=== PATIENT | female | born 1975 | race Caucasian/White ===

== ENCOUNTER 2022-11-26 13:26 | Emergency (ER) | payer OTHER ==
[~2022-11-26] VITALS: Ht 162.6 cm; Wt 75.7 kg
--- NOTE | 2022-11-26 14:01 | ED General ---
General Chief Complaint: Neuro-Stroke Like Symptoms Stated Complaint: STROKE-LIKE SYMPTOMS Source of Information: Patient Exam Limitations: No Limitations History of Present Illness Date Seen by Provider: Nov 26, 2022 Time Seen by Provider: 13:29 Initial Comments 47-year-old female with past medical history of chronic migraines that are atypical and chronic back issues coming in due to a near syncopal episode this morning, fell down in the bathroom around 5 AM, hit her head with headache and some back discomfort. Has been walking since then. Went to an and [place] and had a CT of her head which was reportedly normal, EKG, and labs reportedly. She stated she signed out AMA because she did not feel like she was being treated well. She believes she could have some foot drop on her right lower extremity. She has had surgery on her back in the past. Denies any bowel or bladder issues. Allergies and Home Medications Allergies Coded Allergies: diphenhydramine (Verified Allergy, Unknown, 11/26/22) fentanyl (Verified Allergy, Unknown, 11/26/22) prochlorperazine (Verified Allergy, Unknown, 11/26/22) tramadol (Verified Allergy, Unknown, 11/26/22) Patient Home Medication List Home Medication List Reviewed: Yes Lidocaine (Lidocaine 5% Patch) 5 % Adh..patch, 1 EACH TP Q12H PRN for Neuropathic pain Prescribed by: JOSE HAINES on 11/26/22 153 Promethazine HCl (Promethazine Tablet) 25 Mg Tablet, 25 MG PO Q8H PRN for NAUSEA/VOMITING Prescribed by: JOSE HAINES on 11/26/22 153 Review of Systems Review of Systems Constitutional: see HPI EENTM: no symptoms reported Respiratory: no symptoms reported Cardiovascular: see HPI Gastrointestinal: no symptoms reported Genitourinary: no symptoms reported Musculoskeletal: see HPI Skin: no symptoms reported Psychiatric/Neurological: See HPI Hematologic/Lymphatic: No Symptoms Reported Past Jymeqzm-Hpdfrv-[id number] Hx Past Medical History Surgeries: Yes Hysterectomy, Orthopedic Physical Exam Vital Signs Vital Signs - First Documented 11/26/22 13:40 Temp 37.3 Pulse 95 Resp 13 B/P (MAP) 126/87 (100) Pulse Ox 96 Capillary Refill : Height, Weight, BMI Height: '" Weight: lbs. oz. kg; BMI Method: General Appearance: No Apparent Distress, WD/WN Eyes: Bilateral Eye Normal Inspection HEENT: PERRL/EOMI, Normal ENT Inspection, Pharynx Normal Neck: Full Range of Motion, Normal Inspection, Non Tender, Supple Respiratory: Chest Non Tender, Lungs Clear, Normal Breath Sounds, No Accessory Muscle Use, No Respiratory Distress Cardiovascular: Regular Rate, Rhythm, No Edema, Normal Peripheral Pulses Gastrointestinal: Normal Bowel Sounds, Non Tender, Soft; No Distended, No Guarding Back: Normal Inspection, No CVA Tenderness, Other (Tenderness mostly around L1 paraspinal) Extremity: Normal Capillary Refill, Normal Inspection, Normal Range of Motion, Non Tender, No Calf Tenderness, No Pedal Edema Neurologic/Psychiatric: Alert, Oriented x3, No Motor/Sensory Deficits, Normal Mood/Affect, cell tester II-XII Norm as Tested, Other (Patient's states that she has foot drop, would not pull her toes towards her head when asked, I personally visualized the patient pulling her toes towards her head during conversation. I also visualized the patient ambulating and transferring on video before getting into the ER outside.) Skin: Normal Color, Warm/Dry Progress/Results/Core Measures Suspected Sepsis SIRS Temperature: Pulse: Respiratory Rate: Laboratory Tests 11/26/22 13:50: White Blood Count 7.8 Blood Pressure / Mean: Laboratory Tests 11/26/22 13:50: Creatinine 0.73, INR Comment 0.9, Platelet Count 278, Total Bilirubin 0.5 Results/Orders Lab Results Laboratory Tests Test 11/26/22 13:50 Range/Units White Blood Count 7.8 4.3-11.0 10^3/uL Red Blood Count 4.88 3.80-5.11 10^6/uL Hemoglobin 15.9 11.5-16.0 g/dL Hematocrit 45 35-52 % Mean Corpuscular Volume 92 80-99 fL Mean Corpuscular Hemoglobin 33 25-34 pg Mean Corpuscular Hemoglobin Concent 36 32-36 g/dL Red Cell Distribution Width 12.2 10.0-14.5 % Platelet Count 278 130-400 10^3/uL Mean Platelet Volume 10.7 9.0-12.2 fL Immature Granulocyte % (Auto) 0 % Neutrophils (%) (Auto) 47 42-75 % Lymphocytes (%) (Auto) 44 12-44 % Monocytes (%) (Auto) 8 0-12 % Eosinophils (%) (Auto) 1 0-10 % Basophils (%) (Auto) 1 0-10 % Neutrophils # (Auto) 3.7 1.8-7.8 10^3/uL Lymphocytes # (Auto) 3.4 1.0-4.0 10^3/uL Monocytes # (Auto) 0.6 0.0-1.0 10^3/uL Eosinophils # (Auto) 0.1 0.0-0.3 10^3/uL Basophils # (Auto) 0.1 0.0-0.1 10^3/uL Immature Granulocyte # (Auto) 0.0 0.0-0.1 10^3/uL Prothrombin Time 12.6 12.2-14.7 SEC INR Comment 0.9 0.8-1.4 Activated Partial Thromboplast Time 31 24-35 SEC Sodium Level 140 135-145 MMOL/L Potassium Level 3.8 3.6-5.0 MMOL/L Chloride Level 107 98-107 MMOL/L Carbon Dioxide Level 20 L 21-32 MMOL/L Anion Gap 13 5-14 MMOL/L Blood Urea Nitrogen 8 7-18 MG/DL Creatinine 0.73 0.60-1.30 MG/DL Estimat Glomerular Filtration Rate 102 BUN/Creatinine Ratio 11 Glucose Level 125 H 70-105 MG/DL Calcium Level 9.1 8.5-10.1 MG/DL Corrected Calcium 8.8 8.5-10.1 MG/DL Magnesium Level 2.2 1.6-2.4 MG/DL Total Bilirubin 0.5 0.1-1.0 MG/DL Aspartate Amino Transf (AST/SGOT) 21 5-34 U/L Alanine Aminotransferase (ALT/SGPT) 17 0-55 U/L Alkaline Phosphatase 80 40-136 U/L Troponin I < 0.028 <0.028 NG/ML Total Protein 7.3 6.4-8.2 GM/DL Albumin 4.4 3.2-4.5 GM/DL My Orders Orders - JOSE HAINES MD Ct Head/Cervical Spine Wo (11/26/22 13:56) Ct Thoracic/Lumbar Spine Wo (11/26/22 13:56) Ed Iv/Invasive Line Start (11/26/22 13:56) Cbc With Automated Diff (11/26/22 13:56) Comprehensive Metabolic Panel (11/26/22 13:56) Magnesium (11/26/22 13:56) Protime With Inr (11/26/22 13:56) Partial Thromboplastin Time (11/26/22 13:56) Troponin I Lalit (11/26/22 13:56) Ed Iv/Invasive Line Start (11/26/22 13:56) Ekg Tracing (11/26/22 13:56) Morphine Injection (Morphine Injection (11/26/22 14:01) Lorazepam Injection (Ativan Injection) (11/26/22 14:55) Vital Signs/I&O 11/26/22 11/26/22 13:40 15:33 Temp 37.3 Pulse 95 88 Resp 13 16 B/P (MAP) 126/87 (100) 116/78 Pulse Ox 96 97 Capillary Refill : Progress Note : Progress Note 47-year-old female with above history coming in after a ground-level fall. ABCs were intact and vitals were stable on presentation. Physical exam with no significant abnormalities other than some lower spinal tenderness. She has been ambulatory for more than 8 hours since the accident, low likelihood for significant fracture. CT head and total spine ordered which were negative for acute findings, does have some chronic changes in her spine particularly where she is tender. EKG ordered and interpreted by me showing no acute ischemic changes, QTc of 419, no delta wave, narrow QRS. Labs significant for normal hemoglobin, normal white blood cell count, normal creatinine, unremarkable electrolytes, reassuring glucose, negative troponin. She is [place] syncope rule negative and she remembers the events as well, unsure if she really had a syncopal episode or if it was near syncope. I believe she stable for discharge with outpatient follow-up. She was sent home with strict return precautions. Of note, the patient was noting some subjective foot drop. When not being prompted, she is able to pull her toes all the way up when watching her closely. She also was able to ambulate in the ER without difficulty. Of note, the patient requested multiple times repeat doses of morphine. She says nothing else will work. I offered her numerous options, she refused all of them for different reasons. I legitimately offered her more than 10 options for medications for pain and headache and she refused all of them. I did state that I do not recommend morphine for what she is stating is a typical headache that she tends to get. She continues to not want any other medications. I am concerned that the patient has been to multiple facilities in the past couple of days, and per her is leaving all of these facilities angry and upset with her care. I can tell she is upset somewhat with her care here today as she is not receiving the morphine that she would like, that I feel at this time after a CT of her head and total spine without acute findings would be inappropriate. I discussed I would send in a lidocaine patch to her pharmacy for her back (she refused all other options offered to her) as well as I would refill her phenergan. Patient also did not want to ambulate in the ER. I personally visualized her move her lower extremities normal when in conversation and not actively examining her. I also visualized her stand, transfer and squat in into her car without assistance on video. Diagnostic Imaging Diagonstic Imaging: CT (head, c/t/l spine) Comments [facility], [place] NAME: DELANO RONQUILLO [facility] REC#: [id number] PT STATUS: REG ER : 1975 PHYSICIAN: JOSE HAINES MD ADMIT DATE: 11/26/22/ER Draft Date of Exam:11/26/22 CT HEAD/CERVICAL SPINE WO PROCEDURE: CT head and CT cervical spine without contrast. TECHNIQUE: Multiple contiguous axial images were obtained through the brain and cervical spine without the use of intravenous contrast. Sagittal and coronal reformations through the cervical spine were then performed. Auto Exposure Controls were utilized during the CT exam to meet ALARA standards for radiation dose reduction. INDICATION: Trauma with migraine headache and visual disturbance; previous cervical spine fusion CT HEAD: CT images of the head were obtained. FINDINGS: Ventricles and sulci are within normal limits for size. There is no intracranial hemorrhage identified. There is no abnormal mass effect or shift of midline structures. IMPRESSION: Unremarkable CT of the head. CT CERVICAL SPINE: Multiple contiguous axial CT images of the cervical spine were obtained with sagittal and coronal reformatted images produced. FINDINGS: There is loss of normal cervical lordosis. Vertebral body heights and disc spaces are maintained. Prevertebral soft tissues are unremarkable, and there is no evidence of paraspinous hematoma. Discectomy and anterior fusion is noted at C6-C7 without evidence of complication. IMPRESSION: Loss of normal cervical lordosis which may be due to positioning or muscle spasm. There is, otherwise, no CT evidence of acute cervical spinal abnormality. Dictated on workstation # [id number] Dict: 11/26/22 1445 Trans: 11/26/22 1448 [facility] [id number] Interpreted by: STAN ECKERT MD Electronically signed by: [facility] [place] [place], [place] NAME: DELANO RONQUILLO [facility] REC#: [id number] PT STATUS: REG ER : 1975 PHYSICIAN: JOSE HAINES MD ADMIT DATE: 11/26/22/ER Draft Date of Exam:11/26/22 CT HEAD/CERVICAL SPINE WO PROCEDURE: CT head and CT cervical spine without contrast. TECHNIQUE: Multiple contiguous axial images were obtained through the brain and cervical spine without the use of intravenous contrast. Sagittal and coronal reformations through the cervical spine were then performed. Auto Exposure Controls were utilized during the CT exam to meet ALARA standards for radiation dose reduction. INDICATION: Trauma with migraine headache and visual disturbance; previous cervical spine fusion CT HEAD: CT images of the head were obtained. FINDINGS: Ventricles and sulci are within normal limits for size. There is no intracranial hemorrhage identified. There is no abnormal mass effect or shift of midline structures. IMPRESSION: Unremarkable CT of the head. CT CERVICAL SPINE: Multiple contiguous axial CT images of the cervical spine were obtained with sagittal and coronal reformatted images produced. FINDINGS: There is loss of normal cervical lordosis. Vertebral body heights and disc spaces are maintained. Prevertebral soft tissues are unremarkable, and there is no evidence of paraspinous hematoma. Discectomy and anterior fusion is noted at C6-C7 without evidence of complication. IMPRESSION: Loss of normal cervical lordosis which may be due to positioning or muscle spasm. There is, otherwise, no CT evidence of acute cervical spinal abnormality. Dictated on workstation # [id number] Dict: 11/26/22 1445 Trans: 11/26/22 1448 [facility] [id number] Interpreted by: STAN ECKERT MD Electronically signed by: Departure Impression Primary Impression: Fall Qualified Codes: W19.XXXA - Unspecified fall, initial encounter Additional Impressions: Syncope Qualified Codes: R55 - Syncope and collapse Concussion Qualified Codes: S06.0X0A - Concussion without loss of consciousness, initial encounter Low back pain Qualified Codes: M54.41 - Lumbago with sciatica, right side Disposition: HOME, SELF-CARE Condition: Stable Departure-Patient Inst. Decision time for Depature: 15:15 Referrals: NO,LOCAL PHYSICIAN (PCP/Family) Primary Care Physician Patient Instructions: Fainting, Adult ED, Concussion in adults Add. Discharge Instructions: The CT of your head and total spine did not show anything significant. We do see some degenerative changes in your spine which can cause pain often worsened after a fall. We recommend following up with a spine surgeon, if you do not have 1, you can have your regular doctor make a referral. We recommend taking [id number] Tylenol as needed for pain and [id number] lidocaine patches as well in the area. You do have a concussion, symptoms of this can be headache, dizziness, sometimes difficulty sleeping, sometimes sleeping more often, and other symptoms as well. Typically this takes a couple weeks to improve. It is okay to sleep since your CT head was normal. Scripts Lidocaine (Lidocaine 5% Patch) 5 % Adh..patch 1 EACH TP Q12H PRN for Neuropathic pain MDD 2 for 14 Days, #28 PATCH 2 patches max for 12 hours, then 12 hours patch-free period. Prov: JOSE HAINES MD 11/26/22 Promethazine HCl (Promethazine Tablet) 25 Mg Tablet 25 MG PO Q8H PRN for NAUSEA/VOMITING for 7 Days, #21 TAB 0 Refills Prov: JOSE HAINES MD 11/26/22 Work/School Note: Work Release Form Date Seen in the Emergency Department: Nov 26, 2022 Return to Work: Nov 28, 2022 Restrictions: No Restrictions OJSE HAINES MD Nov 26, 2022 14:01
[2022-11-26 14:02] LABS: BASOPHILS # (AUTO) 0.1 10^3/uL (0.0-0.1); BASOPHILS % (AUTO) 1 % (0-10); EOSINOPHILS # (AUTO) 0.1 10^3/uL (0.0-0.3); EOSINOPHILS % (AUTO) 1 % (0-10); HEMATOCRIT 45 % (35-52); HEMOGLOBIN 15.9 g/dL (11.5-16.0); LYMPHOCYTES # (AUTO) 3.4 10^3/uL (1.0-4.0); LYMPHOCYTES % (AUTO) 44 % (12-44); MEAN CORPUSCULAR HEMOGLOBIN 33 pg (25-34); MEAN CORPUSCULAR HGB CONC 36 g/dL (32-36); MEAN CORPUSCULAR VOLUME 92 fL (80-99); MEAN PLATELET VOLUME 10.7 fL (9.0-12.2); MONOCYTES # (AUTO) 0.6 10^3/uL (0.0-1.0); MONOCYTES % (AUTO) 8 % (0-12); NEUTROPHILS # (AUTO) 3.7 10^3/uL (1.8-7.8); NEUTROPHILS % (AUTO) 47 % (42-75); PLATELET COUNT 278 10^3/uL (130-400); WHITE BLOOD COUNT 7.8 10^3/uL (4.3-11.0)
[2022-11-26 14:11] LABS: ALBUMIN 4.4 GM/DL (3.2-4.5); CHLORIDE 107 MMOL/L (98-107); POTASSIUM 3.8 MMOL/L (3.6-5.0); SODIUM 140 MMOL/L (135-145)
[2022-11-26 14:12] LABS: CALCIUM 9.1 MG/DL (8.5-10.1)
[2022-11-26 14:13] LABS: GLUCOSE 125 MG/DL (70-105); TOTAL PROTEIN 7.3 GM/DL (6.4-8.2)
[2022-11-26 14:14] LABS: CARBON DIOXIDE 20 MMOL/L (21-32)
[2022-11-26] MEDS: morphine INJ 10 MG/ML 1ML (SYR OR VIAL) IVP STA (14:14)
[2022-11-26 14:15] LABS: BILIRUBIN,TOTAL 0.5 MG/DL (0.1-1.0)
[2022-11-26 14:17] LABS: ALKALINE PHOSPHATASE 80 U/L (40-136); CREATININE SERUM 0.73 MG/DL (0.60-1.30); GFR ESTIMATED 102
[2022-11-26 14:18] LABS: BUN/CREATININE RATIO 11
[2022-11-26 14:19] LABS: INR 0.9 (0.8-1.4); PROTHROMBIN TIME PATIENT 12.6 SEC (12.2-14.7)
[2022-11-26 14:20] LABS: ALANINE AMINOTRANSFERASE 17 U/L (0-55); MAGNESIUM 2.2 MG/DL (1.6-2.4)
--- NOTE | 2022-11-26 14:48 | Diagnostic Imaging Report ---
PROCEDURE: CT head and CT cervical spine without contrast. TECHNIQUE: Multiple contiguous axial images were obtained through the brain and cervical spine without the use of intravenous contrast. Sagittal and coronal reformations through the cervical spine were then performed. Auto Exposure Controls were utilized during the CT exam to meet ALARA standards for radiation dose reduction. INDICATION: Trauma with migraine headache and visual disturbance; previous cervical spine fusion CT HEAD: CT images of the head were obtained. FINDINGS: Ventricles and sulci are within normal limits for size. There is no intracranial hemorrhage identified. There is no abnormal mass effect or shift of midline structures. IMPRESSION: Unremarkable CT of the head. CT CERVICAL SPINE: Multiple contiguous axial CT images of the cervical spine were obtained with sagittal and coronal reformatted images produced. FINDINGS: There is loss of normal cervical lordosis. Vertebral body heights and disc spaces are maintained. Prevertebral soft tissues are unremarkable, and there is no evidence of paraspinous hematoma. Discectomy and anterior fusion is noted at C6-C7 without evidence of complication. IMPRESSION: Loss of normal cervical lordosis which may be due to positioning or muscle spasm. There is, otherwise, no CT evidence of acute cervical spinal abnormality. Dictated by: Dictated on workstation # [id number]
--- NOTE | 2022-11-26 15:01 | Diagnostic Imaging Report ---
PROCEDURE: CT thoracic and lumbar spine without contrast. TECHNIQUE: Multiple contiguous axial images were obtained through the thoracic and lumbar spine without the use of intravenous contrast. Sagittal and coronal reformations were then performed. All CT scans use one or more of the following dose optimizing techniques: automated exposure control, MA and/or KvP adjustment based on a patient size and exam type, or iterative reconstruction. INDICATION: Trauma/back pain. FINDINGS: Thoracic and lumbar spinal curvature and alignment are unremarkable. Vertebral body heights are maintained. There is no evidence of acute fracture or malalignment. There is moderate narrowing of the L5-S1 disc space with associated endplate spurring. No definite spondylolysis or spondylolisthesis is appreciated. There is no evidence of paraspinous hematoma. IMPRESSION: Localized L5-S1 degenerative disc disease without CT evidence of acute thoracic or lumbar spinal injury. Dictated by: Dictated on workstation # [id number]
[2022-11-26] MEDS: LORazepam INJ 2 MG/ML (ATIVAN) VIAL IVP STA (15:09)
[2022-11-26] MEDS ORDERED: LIDO700A45 TP (15:32)
[2022-11-26] MEDS ORDERED: PROM25TA14 PO (15:32)
[2022-11-26 15:33] VITALS: BP 116/78
[2022-11-26] MEDS ORDERED: HYDR-700 PO (15:38)
== END 2022-11-26 15:45 | disposition home or self-care (01) ==
LOC: EDUNIT# 13:26 → ER 13:32
DX: S06.0XAA Concussion with loss of consciousness status unknown, initial encounter (principal); R55 Syncope and collapse; M54.50 Low back pain, unspecified; Z86.69 Personal history of other diseases of the nervous system and sense organs; Z28.310 Unvaccinated for COVID-19; W18.30XA Fall on same level, unspecified, initial encounter; W22.8XXA Striking against or struck by other objects, initial encounter; Y92.002 Bathroom of unspecified non-institutional (private) residence as the place of occurrence of the external cause
CPT/HCPCS: 36415; 70450; 72125; 72128; 72131; 80053; 83735; 84484; 85025; 85610; 85730; 93005

== ENCOUNTER 2023-02-07 08:19 | Emergency (ER) | payer OTHER ==
[~2023-02-07] VITALS: Ht 162 cm; Wt 81.0 kg
[~2023-02-07 08:19] MED LIST: HYDR-700 PO; LIDO700A45 TP; PROM25TA14 PO
--- NOTE | 2023-02-07 09:36 | ED Back Pain ---
General Chief Complaint: Back Problems Stated Complaint: BACK PAIN Nursing Triage Note: PT TO ED W/ C/O LOWER BACK PAIN ONSET YESTERDAY AFTER MOVING FURNITURE AT HOME. PT REPORTS HX OF BACK SURGERY 10YRS AGO. DENIES LOSS OF BOWEL OR BLADDER, DENIES BILAT LEG NUMBNESS. DOES REPORT SHE FEELS LIKE HER "LEFT LEG IS DRAGGING". NO OTHER C/O VOICED. Source of Information: Patient (LISA CONTRERAS) History of Present Illness Date Seen by Provider: Feb 07, 2023 Time Seen by Provider: 09:20 Location: Lumbar Spine, Paraspinous Muscles Timing/Duration: 24 Hours Severity: Moderate Pain/Injury Location: Back, Lower Extremity (left leg weakness) Radiation: Buttocks, Lower Legs (left leg) Method of Injury: Other (moved furniture yesterday) Modifying Factors: Improves With Movement (worsens) Associated Symptoms: muscle spasms, weakness; No numbness in legs/feet, No tingling in legs/feet; lower back pain; No loss of bladder control, No loss of bowel control (LISA CONTRERAS) Initial Comments This 47-year-old woman presents to the emergency room with severe lower back pain. She has had chronic lower back pain and prior surgery on the lumbar spine without hardware. She implies a discectomy. She has had some radicular pain into the left leg without true muscle weakness. The severe pain started yesterday after she pushed some furniture. This was a relatively nonstrenuous activity that did not involve any lifting. She heard a popping sound at onset of pain. She has taken ibuprofen, Tylenol, aspirin, and drank alcohol last night without benefit. The pain is stabbing in nature and worse with any movement. She was able to walk into the emergency room today. She has been avoiding drinking fluids because she did not want to get up to urinate. She fell a few months ago but does not believe this current episode is related to injury from that fall. Patient was initially seen by MEG wylie at 0920. Report was received from MEG wylie. I personally interviewed and examined the patient at 1005 as soon as I was available. (JEN CANTU MD) Allergies and Home Medications Allergies Coded Allergies: diphenhydramine (Verified Allergy, Unknown, 11/26/22) fentanyl (Verified Allergy, Unknown, 11/26/22) prochlorperazine (Verified Allergy, Unknown, 11/26/22) tramadol (Verified Allergy, Unknown, 11/26/22) Patient Home Medication List Home Medication List Reviewed: Yes (LISA CONTRERAS) Lidocaine (Lidocaine 5% Patch) 5 % Adh..patch, 1 EACH TP Q12H PRN for Neuropathic pain Prescribed by: JOSE HAINES on 11/26/22 1532 Oxycodone HCl/Acetaminophen (Percocet 5-325 mg Tablet) 1 Each Tablet, 1 TAB PO Q4H PRN for PAIN BREAKTROUGH Prescribed by: JEN TANG on 02/07/23 1227 Promethazine HCl (Promethazine Tablet) 25 Mg Tablet, 25 MG PO Q8H PRN for NAUSEA/VOMITING Prescribed by: JOSE HAINES on 11/26/22 1532 Review of Systems Constitutional: no symptoms reported; No chills, No diaphoresis, No dizziness EENTM: no symptoms reported Respiratory: no symptoms reported; No cough, No dyspnea on exertion, No short of breath, No wheezing Cardiovascular: no symptoms reported; No chest pain, No palpitations, No syncope Gastrointestinal: No abdominal pain, No constipation, No diarrhea, No nausea, No vomiting Genitourinary: no symptoms reported : No Musculoskeletal: back pain, muscle pain, muscle stiffness, muscle weakness (left leg) (LISA CONTRERAS) Past Qgngbja-Cfvkgd-Cpxnnb Hx Patient Social History Tobacco Use?: Yes Tobacco type used: Cigarettes Smoking Status: Current Everyday Smoker Use of E-Cig and/or Vaping dev: No Substance use?: Yes Substance type: Nicotine, Marijuana Alcohol Use?: Yes Pt feels they are or have been: No (LISA CONTRERAS) Past Medical History Surgery/Hospitalization HX: back surgery Surgeries: Yes Hysterectomy, Orthopedic (LISA CONTRERAS) Physical Exam Vital Signs Vital Signs - First Documented 02/07/23 09:15 Temp 36.5 Pulse 115 Resp 20 B/P (MAP) 124/76 (92) Pulse Ox 96 O2 Delivery Room Air (JEN CANTU MD) Vital Signs Capillary Refill : Less Than 3 Seconds (LISA CONTRERAS) Height, Weight, BMI Height: '" Weight: lbs. oz. kg; 30.00 BMI Method: General Appearance: No Apparent Distress, WD/WN Cardiovascular: Regular Rate, Rhythm, No Gallop, No Murmur, Normal Peripheral Pulses Respiratory: Lungs Clear, Normal Breath Sounds, No Accessory Muscle Use, No Respiratory Distress Gastrointestinal: Non Tender, Soft Back: CVA Tenderness (L), CVA Tenderness (R), Vertebral Tenderness, Other (paraspinal tenderness of lumbar spine bilaterally and sciatica area of left side. ) Extremity: Normal Range of Motion, Non Tender, No Calf Tenderness Neurologic/Psychiatric: Alert, Oriented x3, Normal Mood/Affect (LISA CONTRERAS) Progress/Results/Core Measures Results/Orders My Orders Orders - JEN CANTU MD Ketorolac Injection (Ketorolac Injection (02/07/23 10:15) Orphenadrine Inj (Ed Only) (Orphenadrine (02/07/23 10:15) Ed Iv/Invasive Line Start (02/07/23 10:06) Lactated Ringers 1,000 Ml (Lactated Ring (02/07/23 10:30) Ct Lumbar Spine Wo (02/07/23 10:16) Morphine Injection (Morphine Injection (02/07/23 10:45) Morphine Injection (Morphine Injection (02/07/23 11:45) Methylprednisolone Acetate Inj (Methylpr (02/07/23 11:45) (JEN CANTU MD) Medications Given in ED (JEN CANTU MD) Vital Signs/I&O 02/07/23 02/07/23 09:15 12:10 Temp 36.5 Pulse 115 100 Resp 20 20 B/P (MAP) 124/76 (92) 130/72 Pulse Ox 96 95 O2 Delivery Room Air Room Air (JEN CANTU MD) Blood Pressure Mean: 92 Progress Progress Note : Time: 09:39 Progress Note 09:39 - Patient is seen this morning for "terrible back pain." She says that she was moving furniture yesterday and her lower back started hurting. She denies any saddle paresthesia or incontinence involved with the back pain. She describes the pain as stabbing and her left leg feeling weak. She states her pain is bad enough that she would rather have a baby than this pain. She has tried Tylenol, Advil and Apirin as well as drinking alcohol last night to try to ease the pain with no help of symptoms. She has a history of lumbar and neck surgery in the past. She does smoke and has marijuana use as well. She has had a hysterectomy in the past. Plan is to give IV fluids as well as IV pain medication at this time. (LISA CONTRERAS) Progress Note : Progress Note Patient was interviewed and examined by me personally along with PA student. Patient was initially treated with Toaradol and Norflex without significant improvement. Morphine was administered. Patient was hydrated with IVF. CT lumbar spine obtained due to the severity of pain and patinet's assertion of the "pop" experienced. CT revealed chronic disease without evidence of acute injury. Radiologist's report was reiewed. She requested a depo-medrol injection. She declined oral steroids due to intolerance. See discharge instructions for further discussion. (JEN CANTU MD) Diagnostic Imaging Diagonstic Imaging: CT Comments NAME: DELANO RONQUILLO [facility] REC#: [id number] PT STATUS: REG ER : 1975 PHYSICIAN: JEN CANTU MD ADMIT DATE: 02/07/23/ER Signed Date of Exam:02/07/23 CT LUMBAR SPINE WO PROCEDURE: CT lumbar spine without contrast. TECHNIQUE: Multiple contiguous axial images were obtained through the lumbar spine without the use of intravenous contrast. Sagittal and coronal reformations were then performed. Auto Exposure Controls were utilized during the CT exam to meet ALARA standards for radiation dose reduction. INDICATION: New onset low back pain starting yesterday after moving furniture. COMPARISON: 11/26/2022. DISCUSSION: No acute fracture or subluxation. Advanced degenerative disc disease at L5-S1 is stable. Underlying facet arthropathy is stable. Alignment is anatomic. Moderate degenerative disease within the sacroiliac joints is stable. Paraspinal soft tissues are unremarkable. No sacral fracture. IMPRESSION: 1. Stable degenerative disease within the lumbar spine. No acute osseous abnormality. Dictated by: Dictated on workstation # [id number] Dict: 02/07/23 1106 Trans: 02/07/23 1449 [facility] [id number] Interpreted by: ARGENTINA PATTON MD Electronically signed by: ARGENTINA PATTON MD 02/07/23 9748 (JEN CANTU MD) Departure Impression Primary Impression: Acute exacerbation of chronic low back pain Disposition: HOME, SELF-CARE Condition: Improved Departure-Patient Inst. Decision time for Depature: 11:50 (JEN CANTU MD) Referrals: NO,LOCAL PHYSICIAN (PCP/Family) Primary Care Physician Patient Instructions: Low back pain in adults Add. Discharge Instructions: You may continue using ibuprofen up to 600 mg every 6 hours as needed for primary pain control. Add Percocet as prescribed for pain not controlled by ibuprofen. Please use Percocet with caution as it may cause drowsiness. Do not drive, operate machinery, or make important decisions while on Percocet. Percocet may also cause constipation, so you may wish to use a stool softener such as Colace while taking Percocet. Gradually increase level of activity as pain allows. Avoid heavy lifting, unnecessary bending, and other strenuous activities until your pain completely resolves. Follow-up with your primary care provider as needed for chronic pain management. Return to the emergency room immediately if you develop escalating pain despite medications, loss of muscle control in your legs, loss of feeling in your legs or feet, numbness in your groin, or bowel and bladder control problems. All discharge instructions reviewed with patient and/or family. Voiced understanding. Scripts Oxycodone HCl/Acetaminophen (Percocet 5-325 mg Tablet) 1 Each Tablet 1 TAB PO Q4H PRN for PAIN BREAKTROUGH MDD 6 TABS, #8 TAB Prov: JEN CANTU MD 02/07/23 Medical Student Attestation and Attending Note: I have personally interviewed and examined this patient along with KAREN Last. I have reviewed student documentation including history, physical, and assessments. I agree with the documentation except where otherwise noted. Exam: General: Alert, oriented, moderate acute distress, well developed HEENT: Normocephalic and atraumatic Heart: Regular rate and rhythm without murmur Lungs: Clear to auscultation bilaterally with normal effort Back: TTP over the lower lumbar spine and paraspinous region. Normal to visual inspection Abdomen: Soft, nontender, nondistended, normal bowel sounds Neuropsych: Alert, oriented, no focal deficits Skin: Warm and dry without rashes (JEN CANTU MD) LISA CONTRERAS Feb 07, 2023 09:36 JEN CANTU MD Feb 07, 2023 11:55
[2023-02-07] MEDS ORDERED: ORPHENADRINE 60 MG/2 ML AMP (ED ONLY) IV ONE (10:15)
[2023-02-07] MEDS ORDERED: KETOROLAC INJ 30 MG/ML VIAL IVP ONE (10:15)
[2023-02-07] MEDS ORDERED: LACTATED RINGERS 1,000 ML 1,000 ML IV ONE (10:30)
[2023-02-07] MEDS ORDERED: morphine INJ 4 MG/ML 1 ML (VIAL/SYRINGE) IVP ONE ×2 (10:45→11:45)
--- NOTE | 2023-02-07 11:16 | Diagnostic Imaging Report ---
PROCEDURE: CT lumbar spine without contrast. TECHNIQUE: Multiple contiguous axial images were obtained through the lumbar spine without the use of intravenous contrast. Sagittal and coronal reformations were then performed. Auto Exposure Controls were utilized during the CT exam to meet ALARA standards for radiation dose reduction. INDICATION: New onset low back pain starting yesterday after moving furniture. COMPARISON: 11/26/2022. DISCUSSION: No acute fracture or subluxation. Advanced degenerative disc disease at L5-S1 is stable. Underlying facet arthropathy is stable. Alignment is anatomic. Moderate degenerative disease within the sacroiliac joints is stable. Paraspinal soft tissues are unremarkable. No sacral fracture. IMPRESSION: 1. Stable degenerative disease within the lumbar spine. No acute osseous abnormality. Dictated by: Dictated on workstation # [id number]
[2023-02-07] MEDS ORDERED: METHYLPREDNISOLONE ACETATE 80 MG/ML IM ONE (11:45)
[2023-02-07] MEDS ORDERED: OXYC1TAB87 PO ×2 (11:53→12:26)
[2023-02-07 12:10] VITALS: BP 130/72
== END 2023-02-07 12:10 | disposition home or self-care (01) ==
LOC: EDUNIT# 08:19 → ER 08:20
DX: M54.42 Lumbago with sciatica, left side (principal); G89.29 Other chronic pain; F17.210 Nicotine dependence, cigarettes, uncomplicated; F17.290 Nicotine dependence, other tobacco product, uncomplicated; Z88.5 Allergy status to narcotic agent; Z98.890 Other specified postprocedural states; X50.0XXA Overexertion from strenuous movement or load, initial encounter; Y92.009 Unspecified place in unspecified non-institutional (private) residence as the place of occurrence of the external cause
CPT/HCPCS: 72131; 96372; 96374; 96375; 96376

== ENCOUNTER → 2023-02-26 | Outpatient (CLI) | payer OTHER ==
[~2023-02-26] MED LIST changes: +OXYC1TAB87 PO
--- NOTE | 2023-02-26 15:55 | Diagnostic Imaging Report ---
PROCEDURE: US Thyroid. TECHNIQUE: Multiple real-time grayscale images were obtained of the thyroid in various projections. INDICATION: Nontoxic thyroid nodule COMPARISON: None available. FINDINGS: Right thyroid lobe: The right thyroid lobe measures 4.9 x 1.2 x 1.3 cm. There are two nodules within the right thyroid lobe that have the same imaging characteristics. These are each solid, isoechoic, circumscribed and has no echogenic foci, TI RADS 3. These each have maximal diameters of 0.7 cm. Isthmus: The thyroid isthmus measures 0.3 cm and without nodule. Left thyroid lobe: The left thyroid lobe measures 4.8 x 1.1 x 1.3 cm. No nodule is present within the left thyroid lobe. IMPRESSION: Two subcentimeter nodules in the right thyroid lobe are probably benign and do not require FNA or dedicated follow-up imaging based on imaging appearance. ACR TI-RADS: TR3 . TI-RADS Recommendations:TR3 - Mildly Suspicious. FNA if greater than 2.5 cm. Follow if greater than 1.5 cm at 1, 3, 5 years. Dictated by: Dictated on workstation # [id number]
--- NOTE | 2023-03-01 16:59 | Diagnostic Imaging Report ---
EXAMINATION: 3D bilateral screening mammogram with CAD. COMPARISON: This study was compared to the prior exam of 09/11/2016. PERSONAL HISTORY: At this time, there are no current complaints. FINDINGS: The breasts are heterogenously dense which may obscure small masses. When compared to the previous study, there does not appear to have been any significant change. There is no primary or secondary sign of malignancy noted. IMPRESSION: 1. There is no evidence for malignancy. 2. The patient should have her annual bilateral screening mammogram on schedule in February 2024. ACR BI-RADS Category 1: Negative. Result letter will be mailed to the patient. Note: At least 10% of breast cancer is not imaged by mammography. Dictated by: Dictated on workstation # [id number]
== END ==
LOC: RAD 08:20
PROVIDERS: ATTEND Family Medicine
DX: Z12.31 Encounter for screening mammogram for malignant neoplasm of breast (principal); E04.1 Nontoxic single thyroid nodule
CPT/HCPCS: 76536; 77063; 77067